=== PATIENT | female | born 1980 | race Hispanic/Latino ===

== ENCOUNTER → 2022-08-15 | Outpatient (CLI) | payer OTHER | END | disposition home or self-care (01) | LOC: RAH 13:47 | PROVIDERS: ATTEND Physician Assistant | DX: Z12.31 Encounter for screening mammogram for malignant neoplasm of breast (principal) | CPT/HCPCS: 77067 ==

== ENCOUNTER → 2023-09-27 | Outpatient (CLI) | payer OTHER | END | disposition home or self-care (01) | LOC: RAH 14:35 | PROVIDERS: ATTEND Family Medicine | DX: Z12.31 Encounter for screening mammogram for malignant neoplasm of breast (principal); R92.343 Mammographic extreme density, bilateral breasts | CPT/HCPCS: 77067 ==

== ENCOUNTER → 2025-02-19 | Outpatient (CLI) | payer OTHER ==
--- NOTE | 2025-02-22 16:05 | HMCIMG ---
BILATERAL BREAST ULTRASOUND: CLINICAL HISTORY: Follow-up for mammogram from 01/29/2025 for moderately heterogeneously nodular dense breasts. Finding: Real-time examination of the both breasts demonstrates heterogeneous echotexture throughout both the breasts without evidence of focal solid or cystic masses. IMPRESSION: No mass or cyst seen. Both breasts appears to be dense.. I would recommend annual mammography with tomography with bilateral breast sonogram. FINAL ASSESSMENT: ACR: BI-RAD- 2. Benign: Also a negative assessment; finding(s) benign abnormalities. Management: Routine mammography screening. Likelihood of Cancer: Essentially 0% likelihood of malignancy.
== END | disposition home or self-care (01) ==
LOC: RAH 13:24
PROVIDERS: ATTEND Nurse Practitioner Family
DX: R92.30 Dense breasts, unspecified (principal)